=== PATIENT | male | born 1995 | race Caucasian/White ===

== ENCOUNTER 2021-12-26 18:46 | Inpatient (IN) ==
--- NOTE | 2021-12-26 18:57 | Emergency Department Note ---
Impression & Plan Alcohol withdrawal syndrome, Alcoholic intoxication, Transaminitis ED Provider Note NAME: MERNA ASCENCIO AGE: 26 SEX: M : 1995 ARRIVES VIA: Walk-In INFORMANT: Patient, ED PROVIDER(S): Renzo Bennett MD Chief Complaint: Medical clearance per [facility] rehab, too drunk to enter HPI: Patient does present at the behest of [facility] as the patient was to be an inpatient rehab candidate for alcohol abuse but the patient was too drunk and they require medical clearance and thus referred him here. The patient does admit to drinking 2 bottles of fireball today. The patient's father states that he does have a discoloration to the right eye but that has been present since . No recent falls or trauma. Patient does admit to vaping and using nicotine but denies any drug use. The patient's alcoholism is chronic in nature but was most recently with more binge drinking in the last 3 to 4 days. Patient denies any head neck chest abdomen or back pain. Patient does state that "he drank too much." Per [facility] the patient cannot be withdrawing from alcohol and needs to have a KEYON less than 200. ROS: See HPI for pertinent positives and negatives. A total of 10 systems were reviewed and otherwise negative. Past medical history: See below Surgical history: See below Social history: See below Physical Exam: GENERAL: Clinically intoxicated, wearing a mask. EYE EXAM: Right conjunctive a slight blue discoloration, PERRL, no anisocoria and EOM's grossly intact w/o pain. NECK: Supple, no nuchal rigidity, no adenopathy, non-tender. No signs of meningismus. LUNGS: Clear to auscultation. Normal chest wall mechanics. HEART: NSR, no MRG. ABDOMEN: Abdomen soft, non-tender, normo-active bowel sounds, no masses, no rebound or guarding. BACK: No CVA TTP. SKIN: No rashes and no bruising. UPPER EXTREMITIES: Upper extremities are grossly normal. LOWER EXTREMITIES: Grossly normal, no edema. NEURO EXAM: Intoxicated, awake, follows basic commands and moves all 4 extremities. Psych: Denies SI, HI, or AVH. Differential diagnoses: Overdose, toxicologic, infection, hypoglycemia, electrol yte abnormalities, cardiac sources, intracerebral event, neurologic, trauma, as well as other pathologies. Course: Patient was seen and evaluated the bedside. Full history physical exam was performed. Imaging Studies: See Below Cardiac monitoring: An order was placed for continuous cardiac monitoring. The monitor shows a rate of 95 with sinus rhythm. MDM: Patient presented due to concern for significant tox [place] prior to rehab. Blood work is obtained along with CT of the head given the patient's significant intoxication. Patient has mild leukopenia with an elevated hemoglobin 18.3. Patient's kidney function is unremarkable with elevation AST and ALT. Alcohol is 499. [place] is wanting the patient to be clinically sober with alcohol of 200. I did receive a call later during the patient's visit where the patient was somewhat tremulous and tachycardic. The patient was ordered Ativan 2 mg and a banana bag. After further discussion with nursing and evaluation do not bel ieve the patient would be safe overnight without additional rounds of Ativan and possibly Librium. The patient been loaded with 50 of Librium. I did speak with the on-call hospitalist and the patient was admitted to the medicine service by Dr. Hernandez. Critical Care: I have personally spent 47 minutes of critical care time in direct management of this patient. This includes bedside care, interpretation of diagnostic studies, and testing, discussion with consultants, patient, and family members, and other require inpatient management activities. This 47 minutes is in excess of all separately billable procedures. Past Med/Surg History Medical History No pertinent past medical history Surgical History No pertinent past surgical history Social History Smoking Status: Current every day smoker Tobacco Type: E-cigarettes / Vaping Hx Alcohol Use: Yes Hx Substance Use: No Preferred Language: Cook Islander Feels Safe at Home: Yes Results & Data (ED) Vital Signs Vital Signs - 24 hr 12/26/21 18:50 12/26/21 19:01 12/26/21 19:04 Temperature 36.4 C L Temperature Source Temporal Artery Scan Pulse Rate 109 H 103 H Pulse Rate [Apical] 102 H Pulse Rate from SpO2 Sensor 106 H Respiratory Rate 18 20 24 Respiratory Effort / Characteristics Non-Labored Spontaneous Respiratory Depth Deep Respiratory Pattern Regular Blood Pressure 142/108 H Blood Pressure [Right Arm] 134/98 Blood Pressure Mean 119 Blood Pressure Mean [Right Arm] 110 Pulse Oximetry 96 98 96 Oxygen Delivery Method Room Air Room Air Room Air Oxygen Flow Rate Sepsis Recent Fever Within 48 Hours No Sepsis New/Unexplained Change in Mental Status No Sepsis Action Taken by Nursing No Action Required Pulse Oximetry Post Tiitration 96 12/26/21 19:10 12/26/21 19:20 12/26/21 20:01 Temperature Temperature Source Pulse Rate 110 H 99 H 67 Pulse Rate [Apical] Pulse Rate from SpO2 Sensor 110 H 67 Respiratory Rate 21 18 15 Respiratory Effort / Characteristics Respiratory Depth Respiratory Pattern Blood Pressure Blood Pressure [Right Arm] Blood Pressure Mean Blood Pressure Mean [Right Arm] Pulse Oximetry 97 93 92 Oxygen Delivery Method Room Air Room Air Room Air Oxygen Flow Rate Sepsis Recent Fever Within 48 Hours Sepsis New/Unexplained Change in Mental Status Sepsis Action Taken by Nursing Pulse Oximetry Post Tiitration 12/26/21 20:21 12/26/21 20:23 12/26/21 20:30 Temperature Temperature Source Pulse Rate 89 89 73 Pulse Rate [Apical] Pulse Rate from SpO2 Sensor 81 74 Respiratory Rate 15 15 16 Respiratory Effort / Characteristics Respiratory Depth Respiratory Pattern Blood Pressure 122/68 116/72 Blood Pressure [Right Arm] Blood Pressure Mean 86 86 Blood Pressure Mean [Right Arm] Pulse Oximetry 91 91 92 Oxygen Delivery Method Room Air Room Air Room Air Oxygen Flow Rate Sepsis Recent Fever Within 48 Hours Sepsis New/Unexplained Change in Mental Status Sepsis Action Taken by Nursing Pulse Oximetry Post Tiitration 12/26/21 20:40 12/26/21 20:50 12/26/21 20:53 Temperature Temperature Source Pulse Rate 82 88 Pulse Rate [Apical] 99 H Pulse Rate from SpO2 Sensor 80 90 Respiratory Rate 15 16 18 Respiratory Effort / Characteristics Respiratory Depth Respiratory Pattern Blood Pressure Blood Pressure [Right Arm] Blood Pressure Mean Blood Pressure Mean [Right Arm] Pulse Oximetry 91 87 L 95 Oxygen Delivery Method Room Air Room Air Nasal Cannula Oxygen Flow Rate 2 Sepsis Recent Fever Within 48 Hours Sepsis New/Unexplained Change in Mental Status Sepsis Action Taken by Nursing Pulse Oximetry Post Tiitration 12/26/21 21:00 12/26/21 21:10 12/26/21 21:20 Temperature Temperature Source Pulse Rate 65 63 75 Pulse Rate [Apical] Pulse Rate from SpO2 Sensor 65 64 74 Respiratory Rate 17 15 18 Respiratory Effort / Characteristics Respiratory Depth Respiratory Pattern Blood Pressure 128/81 Blood Pressure [Right Arm] Blood Pressure Mean 96 Blood Pressure Mean [Right Arm] Pulse Oximetry 98 98 98 Oxygen Delivery Method Nasal Cannula Nasal Cannula Nasal Cannula Oxygen Flow Rate 2 2 2 Sepsis Recent Fever Within 48 Hours Sepsis New/Unexplained Change in Mental Status Sepsis Action Taken by Nursing Pulse Oximetry Post Tiitration 12/26/21 21:30 12/26/21 22:00 12/26/21 22:04 Temperature Temperature Source Pulse Rate 108 H 97 H 91 H Pulse Rate [Apical] 106 H Pulse Rate from SpO2 Sensor 107 H 91 H 98 H Respiratory Rate 19 18 23 Respiratory Effort / Characteristics Respiratory Depth Respiratory Pattern Blood Pressure 131/91 128/96 Blood Pressure [Right Arm] 128/96 Blood Pressure Mean 104 106 Blood Pressure Mean [Right Arm] 106 Pulse Oximetry 92 92 94 Oxygen Delivery Method Nasal Cannula Oxygen Flow Rate 2 Sepsis Recent Fever Within 48 Hours Sepsis New/Unexplained Change in Mental Status Sepsis Action Taken by Nursing Pulse Oximetry Post Tiitration 12/26/21 22:30 12/26/21 22:58 12/26/21 23:00 Temperature Temperature Source Pulse Rate 88 108 H 91 H Pulse Rate [Apical] Pulse Rate from SpO2 Sensor 105 H 98 H Respiratory Rate 20 25 H 20 Respiratory Effort / Characteristics Respiratory Depth Respiratory Pattern Blood Pressure 152/89 H Blood Pressure [Right Arm] Blood Pressure Mean 110 Blood Pressure Mean [Right Arm] Pulse Oximetry 96 97 Oxygen Delivery Method Oxygen Flow Rate Sepsis Recent Fever Within 48 Hours Sepsis New/Unexplained Change in Mental Status Sepsis Action Taken by Nursing Pulse Oximetry Post Tiitration Home Medications Current Medication List: was personally reviewed by me Laboratory Data Attestation: I reviewed the patient's lab results. Result diagrams: 12/26/21 19:08 12/26/21 19:06 Lab Results 12/26/21 12/26/21 12/26/21 Range/Units 19:06 19:06 19:08 WBC 4.25 L (4.8-10.8) K/uL RBC 6.09 (4.7-6.1) M/uL Hgb 18.3 H (14.0-18.0) g/dL Hct 49.5 (42-52) % MCV 81.3 (80-100) fL MCH 30.0 (25-34) pg MCHC 37.0 H (32-36) g/dL RDW Std Deviation 33.4 L (36.4-46.3) fL RDW Coeff of Gabrielle 11.5 (11.5-14.5) % Plt Count 187 (130-400) K/uL MPV 9.3 (7.4-10.4) fL Immature Gran % (Auto) 0.0 % Neut % (Auto) 54.3 % Lymph % (Auto) 36.9 % [place] % (Auto) 7.1 % Eos % (Auto) 1.2 % Baso % (Auto) 0.5 % Neut # (Auto) 2.31 (1.4-6.5) K/uL Lymph # (Auto) 1.57 (1.2-3.4) K/uL [place] # (Auto) 0.30 (0.11-0.59) K/uL Eos # (Auto) 0.05 (0-0.5) K/uL Baso # (Auto) 0.02 (0-0.2) K/uL Immature Gran # (Auto) 0.00 (0.00-0.02) K/uL Sodium 140 (136-145) mmol/L Potassium 3.5 (3.5-5.1) mmol/L Chloride 101 (98-107) mmol/L Carbon Dioxide 27 (21-32) mmol/L Anion Gap 12 H (3-11) BUN 10 (6-23) mg/dl Creatinine 0.87 (0.6-1.4) mg/dl Est Cr Clr Drug Dosing 124.5 ml/min Est GFR ( Amer) 138.1 ml/min Est GFR (Non-Af Amer) 119.1 ml/min BUN/Creatinine Ratio 11.5 (10-20) Glucose 164 H (70-99(Fasting)) mg/dl Calcium 8.7 (8.5-10.1) mg/dl Total Bilirubin 0.9 (0.2-1.0) mg/dl AST 69 H (13-39) U/L ALT 74 H (7-52) U/L Alkaline Phosphatase 77 (34-104) U/L Total Protein 7.0 (6.0-8.3) gm/dl Albumin 4.6 (3.4-5.0) gm/dl Globulin 2.4 L (2.5-4.0) gm/dl Albumin/Globulin Ratio 1.9 (0.9-2) TSH (0.300-4.500) uIu/ml Salicylates (3.0-30) mg/dl Acetaminophen (10-30) ug/ml Ethyl Alcohol mg/dL 499.4 H (<10.0) mg/dl 12/26/21 12/26/21 Range/Units 19:08 19:08 WBC (4.8-10.8) K/uL RBC (4.7-6.1) M/uL Hgb (14.0-18.0) g/dL Hct (42-52) % MCV (80-100) fL MCH (25-34) pg MCHC (32-36) g/dL RDW Std Deviation (36.4-46.3) fL RDW Coeff of Gabrielle (11.5-14.5) % Plt Count (130-400) K/uL MPV (7.4-10.4) fL Immature Gran % (Auto) % Neut % (Auto) % Lymph % (Auto) % [place] % (Auto) % Eos % (Auto) % Baso % (Auto) % Neut # (Auto) (1.4-6.5) K/uL Lymph # (Auto) (1.2-3.4) K/uL [place] # (Auto) (0.11-0.59) K/uL Eos # (Auto) (0-0.5) K/uL Baso # (Auto) (0-0.2) K/uL Immature Gran # (Auto) (0.00-0.02) K/uL Sodium (136-145) mmol/L Potassium (3.5-5.1) mmol/L Chloride (98-107) mmol/L Carbon Dioxide (21-32) mmol/L Anion Gap (3-11) BUN (6-23) mg/dl Creatinine (0.6-1.4) mg/dl Est Cr Clr Drug Dosing ml/min Est GFR ( Amer) ml/min Est GFR (Non-Af Amer) ml/min BUN/Creatinine Ratio (10-20) Glucose (70-99(Fasting)) mg/dl Calcium (8.5-10.1) mg/dl Total Bilirubin (0.2-1.0) mg/dl AST (13-39) U/L ALT (7-52) U/L Alkaline Phosphatase (34-104) U/L Total Protein (6.0-8.3) gm/dl Albumin (3.4-5.0) gm/dl Globulin (2.5-4.0) gm/dl Albumin/Globulin Ratio (0.9-2) TSH 2.393 (0.300-4.500) uIu/ml Salicylates < 3.0 L (3.0-30) mg/dl Acetaminophen < 3 L (10-30) ug/ml Ethyl Alcohol mg/dL (<10.0) mg/dl Administered Medications Chlordiazepoxide HCl (Chlordiazepoxide Hcl 25 Mg Cap) 50 mg PO Q6H TJ; Taper Stop: 12/30/21 00:29 Last Admin: 12/27/21 00:29 Dose: 50 mg Documented by: [id number] Discontinued Medications Chlordiazepoxide HCl (Chlordiazepoxide Hcl 25 Mg Cap) 50 mg PO NOW ONE Stop: 12/26/21 23:06 Last Admin: 12/26/21 23:21 Dose: 50 mg Documented by: [id number] Chlordiazepoxide HCl (Chlordiazepoxide Alcohol Withdrawl 50mg) 1 ea PO NOW STA; Protocol Stop: 12/27/21 00:18 Last Admin: 12/27/21 00:29 Dose: Not Given Documented by: [id number] Lorazepam (Ativan) 2 mg in 4 mls @ 4 mls/min IV NOW STA Stop: 12/26/21 23:06 Last Admin: 12/26/21 23:21 Dose: 4 mls/min Documented by: [id number] Multivitamins 10 ml/ Thiamine HCl 100 mg/ Folic Acid 1 mg/Sodium Chloride 1,011.2 mls @ 1,011.2 mls/hr IV .Q1H ONE Stop: 12/27/21 00:05 Last Admin: 12/27/21 00:14 Dose: 1,011.2 mls/hr Documented by: [id number] Nicotine (Nicotine 21 Mg/24 Hr Tdsy) 21 mg TD NOW STA Stop: 12/26/21 19:05 Last Admin: 12/26/21 19:11 Dose: 21 mg Documented by: [id number] Ondansetron HCl (Ondansetron Inj 2 Mg/Ml 2 Ml Vial) Confirm Administered Dose 4 mg .ROUTE .[employer] ONE Stop: 12/26/21 23:29 Last Admin: 12/26/21 23:29 Dose: 4 mg Documented by: [id number] Imaging Data Radiologist's Impression: Head CT 12/26/21 19:[address] DOSE: 1074.96 mGy.cm HISTORY: Altered mental status. Intoxication. 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 Automated exposure control was utilized for this study. A dose lowering technique was utilized adhering to the principles of ALARA. Comparison: None. Findings: Motion artifact. The paranasal sinuses and mastoid air cells are clear. The calvarium and skull base are intact. The ventricles and sulci are within normal limits. There is no mass, hematoma, midline shift, or acute infarct. Impression: Motion artifact. No definite acute intracranial abnormality. ACT 112: Negative or not required by law. Electronically signed by: Osmar Borja M.D. 12/26/2021 7:46 PM Discharge Plan Visit Data Chief Complaint: Alcohol Intoxication Stated Complaint: ALCOHOL INTOXICATION ED Provider: Renzo Bennett Discharge Problem: Alcohol withdrawal syndrome, Alcoholic intoxication, Transaminitis Forms Stand Alone Forms: [facility] Referrals Referrals: PCP,NO [Primary Care Provider] -
[2021-12-26] MEDS ORDERED: NICOTINE 21 MG/24 HR TDSY TD STA (19:04)
[2021-12-26 19:25] LABS: Basophils # (auto) 0.02 K/uL (0-0.2); Basophils % (auto) 0.5 %; Eosinophils # (auto) 0.05 K/uL (0-0.5); Eosinophils % (auto) 1.2 %; Hematocrit (blood only) 49.5 % (42-52); Hemoglobin 18.3 g/dL (14.0-18.0); Lymphocytes # (auto) 1.57 K/uL (1.2-3.4); Lymphocytes % (auto) 36.9 %; Mean Corpuscular Volume 81.3 fL (80-100); Mean Platelet Volume 9.3 fL (7.4-10.4); Monocytes % (auto) 7.1 %; Neutrophils # (auto) 2.31 K/uL (1.4-6.5); Neutrophils % (auto) 54.3 %; Platelet Count 187 K/uL (130-400); RDW Coefficient of Variation 11.5 % (11.5-14.5); RDW Standard Deviation 33.4 fL (36.4-46.3); Red Blood Count 6.09 M/uL (4.7-6.1); White Blood Count 4.25 K/uL (4.8-10.8)
[2021-12-26 19:43] LABS: Albumin Globulin Ratio 1.9 (0.9-2); Albumin Level 4.6 gm/dl (3.4-5.0); BUN Creatinine Ratio 11.5 (10-20); Bilirubin,Total 0.9 mg/dl (0.2-1.0); Calcium 8.7 mg/dl (8.5-10.1); Creatinine Clr Calc Pharmacy 124.5 ml/min; Est GFR (African American) 138.1 ml/min; Est GFR (Non-African American) 119.1 ml/min; Globulin 2.4 gm/dl (2.5-4.0); Potassium 3.5 mmol/L (3.5-5.1)
[2021-12-26 19:44] LABS: Acetaminophen < 3 ug/ml (10-30); Salicylate < 3.0 mg/dl (3.0-30)
--- NOTE | 2021-12-26 19:48 | CT Scan Report ---
HEAD CT NONCONTRAST CT DOSE: 1074.96 mGy.cm HISTORY: Altered mental status. Intoxication. 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 A utomated exposure control was utilized for this study. A dose lowering technique was utilized adheri ng to the principles of ALARA. Comparison: None. Findings: Motion artifact. The paranasal sinuses and mastoid air cells are clear. The calvarium and s kull base are intact. The ventricles and sulci are within normal limits. There is no mass, hematoma, midline shift, or acute infarct. Impression: Motion artifact. No definite acute intracranial abnormality. ACT 112: Negative or not required by law. Electronically signed by: Osmar Borja M.D. 12/26/2021 7:46 PM
[2021-12-26] MEDS ORDERED: LORazepam 2 MG/4 ML VIAL IV STA (23:05)
[2021-12-26] MEDS ORDERED: chlordiazePOXIDE HCl 25 MG CAP PO ONE (23:05)
[2021-12-26] MEDS ORDERED: MULTI-VITAMIN INFUSION 10 ML, THIAMINE HCL 100 MG, FOLIC ACID 1 MG in SODIUM CHLORIDE 0... IV ONE (23:06)
[2021-12-26] MEDS ORDERED: ONDANSETRON INJ 2 MG/ML 2 ML VIAL ONE (23:28)
[2021-12-27] MEDS ORDERED: chlordiazePOXIDE ALCOHOL WITHDRAWL 50MG PO STA (00:17)
[2021-12-27] MEDS ORDERED: LORazepam 1 MG/2 ML VIAL IV PRN ×2 (00:17)
[2021-12-27] MEDS ORDERED: ATIVAN IV ALCOHOL WITHDRAWL IV PRN (00:17)
[2021-12-27] MEDS ORDERED: LORazepam 3 MG/6 ML VIAL IV PRN (00:17)
[2021-12-27] MEDS ORDERED: chlordiazePOXIDE HCl 25 MG CAP PO SCH (00:30)
--- NOTE | 2021-12-27 01:23 | History & Physical Report ---
Date of Service December 27, 2021 Assessment & Plan (1) Alcohol withdrawal syndrome: Plan: Situational hypertension Complicated bronchitis, no sepsis Alcoholic hepatitis, good prognosis with Maddrey's DF score of 7.3 points Hyperglycemia rule out DM Ongoing tobacco abuse Medical telemetry PATRICK S, DT precautions Clonidine as needed SBP greater than 160 Doxycycline for complicated bronchitis Check hemoglobin A1c Nicotine patch DVT prophylaxis per Lovenox subcu Full code Text document was generated using [employer] voice recognition software. It may contain grammatical or spelling errors. Kindly contact undersigned for clarification of any documentation item in question. History of Present Illness Chief Complaint: High alcohol level Primary Care Provider: None History obtained from patient and records. Medical history significant for ongoing alcohol and tobacco abuse. Patient is a resident of [place], [place] who is currently in [facility] for voluntary confinement at inpatient alcohol rehab at [facility]. Patient recently completed month-long inpatient alcohol rehab at [facility] in [place], [place] last month. Patient went back to drinking after discharge to home 2 weeks ago. Junky cough symptoms of about 1 month duration without chest pain or shortness of breath. Patient had COVID-19 illness a few months ago. Has not had COVID-19 vaccination. Patient decided to commit himself to inpatient alcohol rehab at the local [facility] yesterday. Upon arrival at the facility, blood alcohol level was noted to be greater than 200. Patient noted to be shaky. No history of alcohol withdrawal seizures. Patient directed to ER for further evaluation. Multiple benzo medications given at the ER to keep patient calm as per ER provider account. 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 Allergies Allergy/AdvReac Type Severity Reaction Status Date / Time No Known Allergies Allergy Unverified 12/27/21 03:53 Past Med/Surg History Medical History No pertinent past medical history Surgical History No pertinent past surgical history Social History Smoking Status: Current every day smoker Tobacco Type: E-cigarettes / Vaping Hx Alcohol Use: Yes Hx Substance Use: No Preferred Language: Croatian Feels Safe at Home: Yes Review of Systems 2 Review of Systems: As per HPI, all 10 systems reviewed, all other ROS negative Physical Exam Physical Exam: GENERAL: Slightly anxious, no respiratory distress SKIN: Multiple skin tattoos, normal color, warm HEENT: Alligator palpebral conjunctivae, no ptosis, dry buccal mucosa NECK : Supple, no tenderness CHEST : Decreased breath sounds, expiratory wheezes that clear on coughing, no tenderness HEART : RRR, no obvious murmurs ABDOMEN: Some distention, nontender EXTREMITIES : No LE swelling/tenderness, no other conspicuous deformities noted NEUROLOGIC : Coherent, no facial asymmetry, no other gross focality Results & Data Results & Data ([facility]) Vital Signs (Past 12 Hours) Vital Signs Temp Pulse Pulse Resp BP BP Pulse Ox 12/26/21 23:00 91 H 20 97 12/26/21 22:58 108 H 25 H 152/89 H 96 12/26/21 22:30 88 20 12/26/21 22:04 91 H 106 H 23 128/96 128/96 94 12/26/21 22:00 97 H 18 92 12/26/21 21:30 108 H 19 131/91 92 12/26/21 21:20 75 18 98 12/26/21 21:10 63 15 98 12/26/21 21:00 65 17 128/81 98 12/26/21 20:53 99 H 18 95 12/26/21 20:50 88 16 87 L 12/26/21 20:40 82 15 91 12/26/21 20:30 73 16 116/72 92 12/26/21 20:23 89 15 122/68 91 12/26/21 20:21 89 15 91 12/26/21 20:01 67 15 92 12/26/21 19:20 99 H 18 93 12/26/21 19:10 110 H 21 97 12/26/21 19:04 102 H 24 134/98 96 12/26/21 19:01 103 H 20 98 12/26/21 18:50 36.4 C L 109 H 18 142/108 H 96 Laboratory Results Laboratory Results WBC 4.25 K/uL (4.8-10.8) L 12/26/21 19:08 RBC 6.09 M/uL (4.7-6.1) 12/26/21 19:08 Hgb 18.3 g/dL (14.0-18.0) H 12/26/21 19:08 Hct 49.5 % (42-52) 12/26/21 19:08 MCV 81.3 fL (80-100) 12/26/21 19:08 MCH 30.0 pg (25-34) 12/26/21 19:08 MCHC 37.0 g/dL (32-36) H 12/26/21 19:08 RDW Std Deviation 33.4 fL (36.4-46.3) L 12/26/21 19:08 RDW Coeff of Gabrielle 11.5 % (11.5-14.5) 12/26/21 19:08 Plt Count 187 K/uL (130-400) 12/26/21 19:08 MPV 9.3 fL (7.4-10.4) 12/26/21 19:08 Immature Gran % (Auto) 0.0 % 12/26/21 19:08 Neut % (Auto) 54.3 % 12/26/21 19:08 Lymph % (Auto) 36.9 % 12/26/21 19:08 [place] % (Auto) 7.1 % 12/26/21 19:08 Eos % (Auto) 1.2 % 12/26/21 19:08 Baso % (Auto) 0.5 % 12/26/21 19:08 Neut # (Auto) 2.31 K/uL (1.4-6.5) 12/26/21 19:08 Lymph # (Auto) 1.57 K/uL (1.2-3.4) 12/26/21 19:08 [place] # (Auto) 0.30 K/uL (0.11-0.59) 12/26/21 19:08 Eos # (Auto) 0.05 K/uL (0-0.5) 12/26/21 19:08 Baso # (Auto) 0.02 K/uL (0-0.2) 12/26/21 19:08 Immature Gran # (Auto) 0.00 K/uL (0.00-0.02) 12/26/21 19:08 Sodium 140 mmol/L (136-145) 12/26/21 19:06 Potassium 3.5 mmol/L (3.5-5.1) 12/26/21 19:06 Chloride 101 mmol/L (98-107) 12/26/21 19:06 Carbon Dioxide 27 mmol/L (21-32) 12/26/21 19:06 Anion Gap 12 (3-11) H 12/26/21 19:06 BUN 10 mg/dl (6-23) 12/26/21 19:06 Creatinine 0.87 mg/dl (0.6-1.4) 12/26/21 19:06 Est Cr Clr Drug Dosing 124.5 ml/min 12/26/21 19:06 Est GFR ( Amer) 138.1 ml/min 12/26/21 19:06 Est GFR (Non-Af Amer) 119.1 ml/min 12/26/21 19:06 BUN/Creatinine Ratio 11.5 (10-20) 12/26/21 19:06 Glucose 164 mg/dl (70-99(Fasting)) H 12/26/21 19:06 Calcium 8.7 mg/dl (8.5-10.1) 12/26/21 19:06 Total Bilirubin 0.9 mg/dl (0.2-1.0) 12/26/21 19:06 AST 69 U/L (13-39) H 12/26/21 19:06 ALT 74 U/L (7-52) H 12/26/21 19:06 Alkaline Phosphatase 77 U/L (34-104) 12/26/21 19:06 Total Protein 7.0 gm/dl (6.0-8.3) 12/26/21 19:06 Albumin 4.6 gm/dl (3.4-5.0) 12/26/21 19:06 Globulin 2.4 gm/dl (2.5-4.0) L 12/26/21 19:06 Albumin/Globulin Ratio 1.9 (0.9-2) 12/26/21 19:06 TSH 2.393 uIu/ml (0.300-4.500) 12/26/21 19:08 Salicylates < 3.0 mg/dl (3.0-30) L 12/26/21 19:08 Acetaminophen < 3 ug/ml (10-30) L 12/26/21 19:08 Ethyl Alcohol mg/dL 499.4 mg/dl (<10.0) H 12/26/21 19:[address] 12/26/21 19:[address] DOSE: 1074.96 mGy.cm HISTORY: Altered mental status. Intoxication. 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 Automated exposure control was utilized for this study. A dose lowering technique was utilized adhering to the principles of ALARA. Comparison: None. Findings: Motion artifact. The paranasal sinuses and mastoid air cells are clear. The calvarium and skull base are intact. The ventricles and sulci are within normal limits. There is no mass, hematoma, midline shift, or acute i nfarct. Impression: Motion artifact. No definite acute intracranial abnormality. ACT 112: Negative or not required by law. Electronically signed by: Osmar Borja M.D. 12/26/2021 7:46 PM Diagnostic Findings Chest x-ray as per my interpretation atelectasis (1) Alcohol withdrawal syndrome Complication of substance-induced condition: with unspecified complication Qualified Code(s): F10.239 - Alcohol dependence with withdrawal, unspecified
[2021-12-27] MEDS ORDERED: GABAPENTIN 1200MG ALCOHOL WITHDRAWAL LOAD PO STA (01:30)
[2021-12-27] MEDS ORDERED: MELATONIN 3 MG TAB PO STA (01:30)
[2021-12-27] MEDS ORDERED: LACTATED RINGER'S 1,000 ML IV ONE (01:30)
[2021-12-27] MEDS ORDERED: GABAPENTIN 600 MG TAB PO ONE (01:30)
[2021-12-27] MEDS ORDERED: ACETAMINOPHEN 325 MG TAB PO PRN (01:30)
[2021-12-27] MEDS: LORazepam 2 MG/4 ML VIAL IV PRN ×2 (01:35→23:02)
[2021-12-27] MEDS ORDERED: PROMETHAZINE HCL 12.5 MG in SODIUM CHLORIDE 0.9% 50 ML IV PRN (02:54)
[2021-12-27] MEDS ORDERED: PATIENT'S ALLERGY INFO NEEDS ENTERED STA (03:35)
[2021-12-27 03:57] LABS: Basophils # (auto) 0.02 K/uL (0-0.2); Basophils % (auto) 0.4 %; Eosinophils # (auto) 0.09 K/uL (0-0.5); Eosinophils % (auto) 1.9 %; Hematocrit (blood only) 44.6 % (42-52); Hemoglobin 16.4 g/dL (14.0-18.0); Immature Granulocytes # (auto) 0.01 K/uL (0.00-0.02); Immature Granulocytes % (auto) 0.2 %; Lymphocytes # (auto) 2.23 K/uL (1.2-3.4); Lymphocytes % (auto) 46.8 %; Mean Corpuscular Hemoglobin 30.1 pg (25-34); Mean Corpuscular Hgb Conc 36.8 g/dL (32-36); Mean Corpuscular Volume 81.8 fL (80-100); Mean Platelet Volume 9.2 fL (7.4-10.4); Monocytes # (auto) 0.32 K/uL (0.11-0.59); Monocytes % (auto) 6.7 %; Neutrophils # (auto) 2.09 K/uL (1.4-6.5); Platelet Count 157 K/uL (130-400); RDW Coefficient of Variation 11.7 % (11.5-14.5); RDW Standard Deviation 34.7 fL (36.4-46.3); Red Blood Count 5.45 M/uL (4.7-6.1); White Blood Count 4.76 K/uL (4.8-10.8)
[2021-12-27 04:09] LABS: INR 1.2 (0.9-1.1); Prothrombin Time 11.9 Seconds (9.0-12.0)
[2021-12-27 04:15] LABS: BUN Creatinine Ratio 14.7 (10-20); Bilirubin,Total 0.9 mg/dl (0.2-1.0); Calcium 7.8 mg/dl (8.5-10.1); Creatinine Clr Calc Pharmacy 144.4 ml/min; Est GFR (African American) 146.7 ml/min; Est GFR (Non-African American) 126.6 ml/min; Potassium 3.6 mmol/L (3.5-5.1)
[2021-12-27] MEDS ORDERED: IPRATROPIUM BROMIDE NEB SOLN 0.02% 2.5 ML VIAL INH PRN (06:15)
[2021-12-27] MEDS ORDERED: XOPENEX/ATROVENT 1.25mg/0.5MG NEB COMBO NEB PRN (06:15)
[2021-12-27] MEDS ORDERED: LEVALBUTEROL 1.25MG/0.5ML NEB INH PRN (06:15)
--- NOTE | 2021-12-27 06:39 | XRay Report ---
XR chest 1V portable CLINICAL HISTORY: wheeze COMPARISON STUDY: No previous studies for comparison. FINDINGS: Lung volumes are mildly diminished. Lungs are clear. There is no pneumothorax or pleural ef fusion. Cardiac size is normal. Mediastinal contours are normal. There is no evidence for pulmonary e dick. IMPRESSION: No acute cardiopulmonary findings. ACT 112: Negative or not required by law. Electronically signed by: Cristian Streeter M.D. 12/27/2021 6:38 AM
[2021-12-27] MEDS: DOXYCYCLINE HYCLATE 100 MG CAP PO SCH ×2 (06:45→21:11)
[2021-12-27] MEDS: ENOXAPARIN INJ 40 MG/0.4 ML SYR SQ SCH (09:10)
[2021-12-27] MEDS: MULTIVITAMIN TAB PO SCH (09:11)
[2021-12-27] MEDS: GABAPENTIN 600 MG TAB PO SCH ×3 (09:11→21:11)
[2021-12-27] MEDS: FOLIC ACID 1 MG TAB PO SCH (09:12)
[2021-12-27] MEDS: THIAMINE HCL 100 MG TAB PO SCH (09:12)
[2021-12-27] MEDS: NICOTINE 14 MG/24 HR PATCH TD SCH (09:12)
[2021-12-27 10:38] LABS: Estimated Average Glucose 94 mg/dl; Hemoglobin A1C 4.9 % (4.5-5.6)
[2021-12-27] MEDS: MELATONIN 3 MG TAB PO PRN (23:02)
--- NOTE | 2021-12-27 23:51 | Communication Note ---
Date of Service: December 27, 2021
[2021-12-28] MEDS: GABAPENTIN 600 MG TAB PO SCH ×2 (05:08→12:56)
[2021-12-28] MEDS: NICOTINE 14 MG/24 HR PATCH TD SCH (08:00)
[2021-12-28] MEDS: ENOXAPARIN INJ 40 MG/0.4 ML SYR SQ SCH (08:00)
[2021-12-28] MEDS: FOLIC ACID 1 MG TAB PO SCH (08:01)
[2021-12-28] MEDS: MULTIVITAMIN TAB PO SCH (08:01)
[2021-12-28] MEDS: THIAMINE HCL 100 MG TAB PO SCH (08:01)
[2021-12-28] MEDS: DOXYCYCLINE HYCLATE 100 MG CAP PO SCH ×2 (08:01→20:08)
[2021-12-28] MEDS ORDERED: CALCIUM CARBONATE 500 MG CHEWABLE TAB PO PRN (20:22)
--- NOTE | 2021-12-28 23:16 | Hospitalist Progress Note ---
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 Mostly due to alcohol withdrawal Asymptomatic Elevated blood pressure Possible due to the hospital setting and alcohol withdrawing Might consider to add clonidine as needed Continue monitor BP Bronchitis Chest x-ray showed no infiltrate or acute finding Continue doxycycline twice daily Hypoglycemia Hemoglobin A1c 4.9 Continue monitor blood sugar Tobacco abuse Continue nicotine patch DVT prophylaxis per Lovenox subcu Full code Admission and Anticipated Discharge Date Admission Date: December 27, 2021 Subjective Patient was seen and examined for follow-up of alcohol abuse Lying in bed with no acute distress Patient said his last drink was the day before he got admitted in the parking lot He is planning to go to rehab once medically stable Currently denies any hallucination, chest pain, palpitation, dizziness or shortness of breath. Review of Systems Review of Systems: All systems reviewed & are unremarkable except as noted in Subjective Physical Exam Physical Exam: General- No acute distress Head- atraumatic Eyes- PERRL, EOMI, ENT- oropharynx clear Neck- supple, no JVD Lungs- clear to auscultation Heart- regular rhythm; no murmur Abdomen- normal bowel sounds, soft, nontender Extremities- no calf tenderness Neuro- alert, oriented x 3; PERRL, EOMI; no facial palsy; no dysarthria Skin- warm & dry Results & Data Results & Data ([facility]) Vital Signs (Past 12 Hours) Vital Signs Temp Pulse Pulse Resp BP Pulse Ox 12/28/21 21:47 36.9 C 72 18 150/96 H 97 12/28/21 19:26 36.8 C 91 H 18 175/95 H 97 12/28/21 15:28 37.0 C 99 H 20 151/98 H 96 12/28/21 15:26 90 12/28/21 11:42 36.7 C 66 18 140/82 96 (1) Alcohol withdrawal syndrome Complication of substance-induced condition: with unspecified complication Qualified Code(s): F10.239 - Alcohol dependence with withdrawal, unspecified
[2021-12-29] MEDS: MELATONIN 3 MG TAB PO PRN (00:12)
[2021-12-29] MEDS: GABAPENTIN 600 MG TAB PO SCH ×2 (00:12→12:59)
[2021-12-29 07:02] LABS: Bilirubin,Total 1.3 mg/dl (0.2-1.0); Calcium 8.9 mg/dl (8.5-10.1); Creatinine Clr Calc Pharmacy 135.4 ml/min; Est GFR (African American) 142.9 ml/min; Est GFR (Non-African American) 123.3 ml/min; Potassium 3.1 mmol/L (3.5-5.1)
[2021-12-29] MEDS ORDERED: Flu Vaccine (Fluarix) 0.5mL SYR (Standard Dose) IM ONE (08:00)
[2021-12-29] MEDS: MULTIVITAMIN TAB PO SCH (08:35)
[2021-12-29] MEDS: DOXYCYCLINE HYCLATE 100 MG CAP PO SCH (08:35)
[2021-12-29] MEDS: THIAMINE HCL 100 MG TAB PO SCH (08:36)
[2021-12-29] MEDS: ENOXAPARIN INJ 40 MG/0.4 ML SYR SQ SCH (08:36)
[2021-12-29] MEDS: FOLIC ACID 1 MG TAB PO SCH (08:36)
[2021-12-29] MEDS: NICOTINE 14 MG/24 HR PATCH TD SCH (08:36)
[2021-12-29] MEDS ORDERED: POTASSIUM CHLORIDE CRTAB 20 MEQ TABCR PO STA ×2 (09:54→12:21)
--- NOTE | 2021-12-29 11:18 | Discharge Summary ---
Date of Service December 29, 2021 Admission HPI Per Admitting Provider History obtained from patient and records. Medical history significant for ongoing alcohol and tobacco abuse. Patient is a resident of [place], [place] who is currently in [facility] for voluntary confinement at inpatient alcohol rehab at [facility]. Patient recently completed month-long inpatient alcohol rehab at [facility] in [place], [place] last month. Patient went back to drinking after discharge to home 2 weeks ago. Junky cough symptoms of about 1 month duration without chest pain or shortness of breath. Patient had COVID-19 illness a few months ago. Has not had COVID-19 vaccination. Patient decided to commit himself to inpatient alcohol rehab at the local [facility] yesterday. Upon arrival at the facility, blood alcohol level was noted to be greater than 200. Patient noted to be shaky. No history of alcohol withdrawal seizures. Patient directed to ER for further evaluation. Multiple benzo medications given at the ER to keep patient calm as per ER provider account. 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 Admission Exam Per Admitting Provider GENERAL: Slightly anxious, no respiratory distress SKIN: Multiple skin tattoos, normal color, warm HEENT: [place] palpebral conjunctivae, no ptosis, dry buccal mucosa NECK : Supple, no tenderness CHEST : Decreased breath sounds, expiratory wheezes that clear on coughing, no tenderness HEART : RRR, no obvious murmurs ABDOMEN: Some distention, nontender EXTREMITIES : No LE swelling/tenderness, no other conspicuous deformities noted NEUROLOGIC : Coherent, no facial asymmetry, no other gross focality Principal Diagnosis Alcohol abuse Alcohol intoxication Tobacco abuse Tachycardia Elevated blood pressure Discharge Exam General- No acute distress Head- atraumatic Eyes- PERRL, EOMI, ENT- oropharynx clear, no nystagmus Neck- supple, no JVD Lungs- clear to auscultation Heart- regular rhythm; no murmur Abdomen- normal bowel sounds, soft, nontender Extremities- no calf tenderness Neuro- alert, oriented x 3; PERRL, EOMI; no facial palsy; no dysarthria, finger to nose intact Skin- warm & dry Discharge Data Allergies Allergy/AdvReac Type Severity Reaction Status Date / Time No Known Allergies Allergy Verified 12/27/21 10:03 Consultations 12/27/21 00:52 ED Decision to Admit Stat Ordered Studies 12/26/21 19:04 CT head/brain wo con Stat XR chest 1V portable CLINICAL HISTORY: wheeze COMPARISON STUDY: No previous studies for comparison. FINDINGS: Lung volumes are mildly diminished. Lungs are clear. There is no pneumothorax or pleural effusion. Cardiac size is normal. Mediastinal contours are normal. There is no evidence for pulmonary edema. IMPRESSION: No acute cardiopulmonary findings. ACT 112: Negative or not required by law. Electronically signed by: Cristian Streeter M.D. 12/27/2021 6:38 AM Dictated:12/27/21636 Transcribed: 12/27/[address] NONCONTRAST CT DOSE: 1074.96 mGy.cm HISTORY: Altered mental status. Intoxication. 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 Automated exposure control was utilized for this study. A dose lowering technique was utilized adhering to the principles of ALARA. Comparison: None. Findings: Motion artifact. The paranasal sinuses and mastoid air cells are clear. The calvarium and skull base are intact. The ventricles and sulci are within normal limits. There is no mass, hematoma, midline shift, or acute infarct. Impression: Motion artifact. No definite acute intracranial abnormality. ACT 112: Negative or not required by law. Electronically signed by: Osmar Borja M.D. 12/26/2021 7:46 PM Dictated:12/26/211943 Transcribed: 12/26/211943 Hospital Course (1) Alcohol withdrawal syndrome: Present on admission with alcohol intoxication Alcohol level 499 Patient said he drank about 2-3 pins of alcohol daily Continue alcohol withdrawal protocol with gabapentin and Ativan Continue thiamine and folic acid supplement Continue monitor closely with sign of alcohol withdrawal DT Counseling on alcohol cessation Pt dad is on his way to take him to alcohol rehab for treatment He already made his mind to leave today or sign AMA if i don't discharge him to go to inpatient alcohol rehab He said that the facility will be able to manage his symptoms if he goes to alcohol withdrawal I ll give him a script for Librium for a short 3 days course (Do not drink alcohol while taking the Librium ) Continue monitor closely Transaminitis AST 67 and ALT 83 today Will check LFT in 1-2 week Will avoid nephrotoxic agents Tachycardia secured entrance monitor shows sinus tachycardia Mostly due to alcohol withdrawal Asymptomatic Elevated blood pressure Possible due to the hospital setting and alcohol withdrawing Might consider to add clonidine as needed Continue monitor BP Bronchitis Chest x-ray showed no infiltrate or acute finding Currently on doxycycline twice daily Will d/c since pt has no symptoms Hypoglycemia Hemoglobin A1c 4.9 Continue monitor blood sugar Tobacco abuse Continue nicotine patch DVT prophylaxis per Lovenox subcu Full code Discharge He already made his mind to leave today or sign AMA if i don't discharge him to go to inpatient alcohol rehab therapy Total Time Total Time Spent Total Time Spent (In Minutes): 35 minutes Discharge Plan Discharge Items Patient Disposition: Drug & Alcohol Rehab Reason For Visit: ALCOHOL WITHDRAWAL Discharge Diagnosis: Alcohol abuse Alcohol intoxication Tobacco abuse Tachycardia Elevated blood pressure Activity: Resume your previous activity Non-emergency contact: Primary Care Provider Call non-emergency contact if: you have any medication questions and your symptoms worsen Follow-up/Referrals: PCP,NO [Primary Care Provider] - Diet: Regular Addtl Attending Provider Instructions: Follow up with your primary care provider once discharge from inpatient alcohol rehab treatment Counseling on alcohol and smoking cessation Seek medical attention if your symptoms worsening Do not drive or perform any machine after taking Librium Do not drink alcohol while taking the Librium Check CMP in 1 to 2 weeks to monitor your liver function and your potassium level Increase potassium supplement in your diet Fall precaution Pending Studies at Discharge: No Stand-Alone Forms: My [facility] Skilled Items Patient informed of condition?: Yes DNR: No Discharge Level of Care: Acute rehab Communicable Disease: No Discharge Prognosis: Stable Lines: None Urinary Catheter: No Medications and DC Order Prescriptions: New thiamine HCl (vitamin B1) 100 mg Tablet 100 mg PO QAM 30 Days Qty: 30 RF: 0 folic acid 1 mg Tablet 1 mg PO QAM 30 Days Qty: 30 RF: 0 chlordiazepoxide HCl 10 mg capsule 10 mg PO UD Qty: 5 RF: 0 Continued baclofen 5 mg tablet 5 mg PO HS RF: 0 methocarbamol 500 mg tablet 1,000 mg PO TID RF: 0 Discharge Orders: Discharge Order (Routine); Ordered 12/29/21 Ordered By: Trace Bacon Admission Data Admit Date/Time: 12/27/21 01:26 Attending Provider: Trace Bacon Admit Provider: Azeem Hernandez Primary Care Provider: PCP,NO Other Providers: Azeem Hernandez
[2021-12-30] MEDS ORDERED: GABAPENTIN 600 MG TAB PO SCH (13:30)
== END 2021-12-29 14:10 | disposition alcohol treatment (31) | DRG 897 ==
LOC: ED 18:46 → EDINP 12-27 01:26 → 2N 12-27 21:55